=== PATIENT | female | born 1975 | race Caucasian/White ===

== ENCOUNTER 2021-01-13 06:30 | Emergency (ER) | payer MEDICARE, MEDICAID ==
[~2021-01-13] VITALS: Ht 157.5 cm; Wt 52.3 kg
[~2021-01-13 06:30] MED LIST: TERB250T85 PO
[2021-01-13 06:34] VITALS: BP 94/53
== END 2021-01-13 11:20 | disposition left against medical advice (07) ==
LOC: ER 06:31
DX: Z53.21 Procedure and treatment not carried out due to patient leaving prior to being seen by health care provider (principal)

== ENCOUNTER 2021-09-18 10:57 | Emergency (ER) | payer MEDICARE, MEDICAID ==
[~2021-09-18] VITALS: Ht 157.5 cm; Wt 50.0 kg
[2021-09-18 11:05] VITALS: BP 103/45
== END 2021-09-18 13:04 | disposition left against medical advice (07) ==
LOC: ER 10:58
DX: M25.511 Pain in right shoulder (principal); Z53.21 Procedure and treatment not carried out due to patient leaving prior to being seen by health care provider

== ENCOUNTER 2024-01-18 23:33 | Emergency (ER) | payer MEDICARE, MEDICAID ==
[~2024-01-18] VITALS: Ht 157.5 cm; Wt 49.7 kg
[2024-01-18 23:39] VITALS: TEMP 98
[2024-01-18] MEDS: naloxone 0.4 mg/ml inj IV ONE (23:51)
[2024-01-18 23:56] LABS: BASOPHILS % (AUTO) 0.6 % (0-1); EOSINOPHILS # (AUTO) 0.1 X10'3 (0-0.9); HEMOGLOBIN 11.1 g/dl (12.0-16.0); LYMPHOCYTES # (AUTO) 2.6 X10'3 (1.1-4.8); MEAN PLATELET VOLUME 7.6 FL (7.4-10.4); MONOCYTES # (AUTO) 0.5 X10'3 (0-0.9)
[2024-01-18 23:58] LABS: EOSINOPHILS % (AUTO) 1.2 % (0-6); LYMPHOCYTES % (AUTO) 44.1 % (21-51); MEAN CORPUSCULAR HEMOGLOBIN 30.5 PG (27.0-31.0); MEAN CORPUSCULAR HGB CONC 32.8 g/dL (33.0-36.5); MONOCYTES % (AUTO) 8.3 % (2-12); NEUTROPHILS # (AUTO) 2.7 X10'3 (1.8-7.7); NEUTROPHILS % (AUTO) 45.8 % (42-75); PLATELET COUNT 283 X10'3 (140-440); RED BLOOD COUNT 3.65 X10'6 (4.20-5.60); RED CELL DISTRIBUTION WIDTH 13.3 % (11.5-14.5); WHITE BLOOD COUNT 5.9 X10'3 (4.5-11.0)
[2024-01-19 00:05] LABS: ALANINE AMINOTRANSFERASE 24 U/L (12-78); ALBUMIN 3.9 G/DL (3.4-5.0); ALBUMIN/GLOBULIN RATIO 1.2 (1.1-1.5); ALKALINE PHOSPHATASE 68 IU/L (46-116); ANION GAP 10 (8-16); ASPARTATE AMINO TRANSFERASE 14 U/L (10-37); BILIRUBIN,TOTAL 0.3 MG/DL (0.1-1.0); BLOOD UREA NITROGEN 10 MG/DL (7-18); BUN/CREATININE RATIO 10.5 (10.0-20.0); CHLORIDE 102 MMOL/L (99-107); CREATININE 0.95 MG/DL (0.40-0.90); ETHANOL 121 MG/DL (<10); GLUCOSE 131 MG/DL (70-104); POTASSIUM 3.5 MMOL/L (3.5-5.1); SALICYLATE 3.5 MG/DL (4.0-20.0); SODIUM 137 MMOL/L (135-145); TOTAL CARBON DIOXIDE 25.3 MMOL/L (24-32); TOTAL PROTEIN 7.1 G/DL (6.4-8.2); eCRCL 57 ML/MIN; eGFR 63 ML/MIN
[2024-01-19 00:06] LABS: ACETAMINOPHEN < 2.0 UG/ML (10-30)
[2024-01-19 00:17] LABS: BILIRUBIN,URINE NEGATIVE (Neg); CLARITY,URINE SLIGHTLY CLOUDY (Clear); COLOR,URINE YELLOW (Yellow); GLUCOSE, URINE NEGATIVE (Neg); KETONES,URINE NEGATIVE (Neg); LEUKOCYTE ESTERASE ,URINE NEGATIVE (Neg); NITRITES, URINE POSITIVE (Neg); OCCULT BLOOD,URINE SMALL (Neg); PROTEIN,URINE TRACE mg/dl (Neg); URINE HCG NEGATIVE (NEG); UROBILINOGEN,URINE 0.2 E.U/dL (0.2-1.0)
[2024-01-19 00:18] LABS: UA COLLECTION TYPE STRAIGHT CATH
[2024-01-19 00:25] LABS: BACTERIA,URINE 3+ /HPF (Neg); MUCUS STRANDS MODERATE /LPF (Neg); SQUAMOUS EPITHELIAL CELL,UR MODERATE /LPF (FEW)
[2024-01-19 00:26] LABS: WBC,URINE 0-4 /HPF (0-4)
[2024-01-19 00:35] LABS: URINE AMPHETAMINE SCREEN POSITIVE (Neg); URINE BARBITUATE SCREEN NEGATIVE (Neg); URINE BENZODIAZEPINES SCREEN POSITIVE (Neg); URINE CANNABINOID SCREEN POSITIVE (Neg); URINE COCAINE SCREEN NEGATIVE (Neg); URINE METHADONE SCREEN NEGATIVE (Neg); URINE OPIATE SCREEN NEGATIVE (Neg); URINE PHENCYCLIDINE SCREEN NEGATIVE (Neg)
[2024-01-19] MEDS: naloxone 0.4 mg/ml inj IV ONE (00:57)
[2024-01-19] MEDS: normal saline 1000ml 1,000 ML IV ONE ×2 (01:01)
[2024-01-19] MEDS: naloxone 0.4 mg/ml inj ONE (01:48)
[2024-01-19] MEDS: CefTRIAXone/D5W-Rocephin 1gm 50 ML IV ONE (01:49)
[2024-01-19] MEDS ORDERED: CEPH500C3 PO (04:01)
[2024-01-19 04:10] VITALS: BP 101/66; PULSE 62; RESP 17; O2SAT 100
== END 2024-01-19 04:14 | disposition home or self-care (01) ==
LOC: ER 23:33
DX: T43.591A Poisoning by other antipsychotics and neuroleptics, accidental (unintentional), initial encounter (principal); F10.129 Alcohol abuse with intoxication, unspecified; R07.89 Other chest pain; Y90.9 Presence of alcohol in blood, level not specified; Y92.89 Other specified places as the place of occurrence of the external cause
CPT/HCPCS: 36415; 80053; 80305; 80329; 81001; 81025; 82948; 83605; 85025; 93005; 96361; 96365; 96366; 96375; 96376; 99285; A4353; G0480; J0696; J2310; J7030; 80320

== ENCOUNTER 2024-12-10 16:07 | Emergency (ER) | payer MEDICARE, MEDICAID ==
[~2024-12-10] VITALS: Ht 154.9 cm; Wt 56.8 kg
[2024-12-10 16:13] VITALS: RESP 20
--- NOTE | 2024-12-10 16:19 | Physician Documentation ---
History of Present Illness ~ Stated Complaint: SOB/WEAK Primary Medical Doctor: [facility] HPI 49-year-old female complains of acute onset shortness of breath this morning while getting ready for the day. Patient does endorse smoking cigarettes. Denies any drug use. Denies any significant cardiac or respiratory history but does endorse anxiety Medication Reconciliation Allergies: Coded Allergies: ketorolac tromethamine (Verified Allergy, Intermediate, 12/10/24) Scheduled Terbinafine Hcl (LamISIL tablet), 500 MG PO DAILY, (Reported) Past Medical History Smoking Status: Current every day smoker Alcohol Use: None Drug Use: none Review of Systems All Other Systems at this time: Reviewed and Negative Respiratory: Reports: see HPI Physical Exam General Appearance: alert, WD/WN, mild distress General Appearance Anxiety versus hyperventilation Respiratory: lungs clear; No: respiratory distress, crackles, rales, rhonchi, wheezing Chest: no accessory muscle use; No: retractions, chest non-tender Respiratory Tachypneic Cardiovascular: regular rate, rhythm Progress Results/Orders Results/Orders Vital Signs 12/10/24 16:13 Resp 20 O2 Flow Rate 0 Departure Time of Disposition: 18:27 Disposition: 07 LEFT AWOL/ELOPED Impression: Primary Impression: Difficulty breathing Condition: Stable Referrals: NO PRIMARY CARE PROVIDER (PCP) Signature Scribe Signature: No scribe Attestation: The note accurately reflects work and decisions made by me.Thelma Blanco - [place] 12/10/24 18:27 THELMA BLANCO NP Dec 10, 2024 16:19
--- NOTE | 2024-12-10 17:33 | ELECTROCARDIOGRAPH REPORT ---
[facility] Test Date: 2024-12-10 Test Time: 16:18:57 Pat Name: MARY RAYMOND Department: EMERGENCY ROOM Room: Gender: F Surgical Device Sales Representative: PM : 1975 Requested By: JOHN BECKWITH Order Number: [id number] Reading MD: Dr. Randall Giron Measurements Intervals [place] Rate: 107 P: 65 [place]: 101 QRS: 74 QRSD: 73 T: 62 QT: 365 QTc: 487 Interpretive Statements Sinus tachycardia Probable left atrial enlargement RSR' in V1 or V2, right VCD or RVH Borderline prolonged QT interval Electronically Signed On 12-10-2024 18:22:[address] Randall Giron Please click the below link to view image of tracing.
== END 2024-12-10 17:02 | disposition left against medical advice (07) ==
LOC: ER 16:08
DX: R06.02 Shortness of breath (principal); F17.210 Nicotine dependence, cigarettes, uncomplicated; Z79.899 Other long term (current) drug therapy; Z88.8 Allergy status to other drugs, medicaments and biological substances
CPT/HCPCS: 93005; 99283